=== PATIENT | male | born 1935 | race Caucasian/White ===

== ENCOUNTER 2020-10-25 10:50 | Inpatient (IN) | payer MEDICARE, BC ==
[~2020-10-25] VITALS: Ht 182.9 cm; Wt 90.7 kg
[~2020-10-25 10:50] MED LIST: CARBIDOPA-LEVO1 EAC6 PO; CRESTOR 10 MG T10 MG PO; CYMBALTA60 MG PO; FERATE240 MG PO; FLEET OIL ENEM133 ML PR; FLOMAX 0.4 MG0.4 MG PO; LACTULOSE20 GM/30 M PO; LANTUS SOL100 UNIT/1 SQ; LEVAQUIN500 MG PO; LOPRESSOR 25 MG25 MG PO; LYRICA150 MG PO; MIRALAX 119 GR119 GM PO; NAMENDA10 MG PO; NORVASC 5 MG TAB5 MG PO; NOVOLOG FL100 UNIT/1 INJ; VALIUM 2 MG TAB2 MG PO; ZESTRIL10 MG PO
[2020-10-25 11:29] LABS: HEMOGLOBIN 12.5 gm/dl (14.0-17.5); RED BLOOD COUNT 4.13 M/UL (4.20-5.50); WHITE BLOOD COUNT 17.3 K/UL (4.5-11.0)
[2020-10-25 12:13] LABS: BUN/CREATININE RATIO 22 (0-10)
[2020-10-25] MEDS ORDERED: LANTUS100 UNIT/1 SQ (16:03)
--- NOTE | 2020-10-25 16:32 | NUR ---
DR DIAZ CALLED TO COME SEE PATIENT AT 1256 FOR CONCERNS FOR SEIZURES. HE SENT JUAN LUIS NAM. HE SUGGESTED A NEURO CONSULT. DR ALMARAZ NOTIFIED OF CONSULT AT 1258. HE ORDERED KEPPRA 1.5 G IV X1 THEN KEPPRA 750MG IV BID. ART LINE PLACED BY DR FAN IN LEFT RADIAL AT 1330. DR FAN ALSO PLACED TRIPLE LUMEN CENTRAL LINE AT BEDSIDE AT 1351. PT GIVEN ATIVAN 4MG IV X1 PER DR COLEMAN. LEVOPHED DECREASED FROM 15MCG TO 1OMCG AT 1358 VERSAD IV STARTED AT 1440 AT 2MG/HR DR DAWSON NOTIFED OF CONSULT FOR POST CARIDAC ARREST AT 1443 VERSAD INCREASED TO 10MG/HR PER DR DIAZ ORDERS TO TRY AND CONTROL CONTRACTURES. REWARMING BEGAN AT 1627 AFTER FAMLIY DECISION TO MAKE PT DNR. PLAN IS TO WITHDRAW CARE IN THE AM
[2020-10-25 16:45] LABS: BUN/CREATININE RATIO 28 (0-10)
[2020-10-25] MEDS ORDERED: NORCO 5-325 TA1 EACH PO (18:46)
[2020-10-25] MEDS ORDERED: SYNTHROID25 MCG PO (18:48)
[2020-10-25] MEDS ORDERED: LATANOPROST 0.7.5 ML EYEBOTH (18:51)
--- NOTE | 2020-10-26 13:19 | NUR ---
DR BEAVER CAME BACK TO SPEAK WITH FAMILY PER THERE REQUEST. DR BEAVER SPOKE WITH AND DAUGHTER AND SON. QUESTIONS ASKED AND ANSWERED
== END 2020-10-28 09:20 | disposition expired | DRG 208 ==
LOC: ER1 10:50 → CCU 13:21 → CDU 13:21 → CCU 15:16
PROVIDERS: Emergency Medicine; Physician Assistant; ADMIT Internal Medicine
PROC: 3E033XZ Introduction of Vasopressor into Peripheral Vein, Percutaneous Approach (ICD-10-PCS; principal; 2020-10-25)
PROC: 0BH17EZ Insertion of Endotracheal Airway into Trachea, Via Natural or Artificial Opening (ICD-10-PCS; principal; 2020-10-25)
PROC: 6A4Z0ZZ Hypothermia, Single (ICD-10-PCS; principal; 2020-10-25)
PROC: 5A1945Z Respiratory Ventilation, 24-96 Consecutive Hours (ICD-10-PCS; principal; 2020-10-25)
PROC: 02HV33Z Insertion of Infusion Device into Superior Vena Cava, Percutaneous Approach (ICD-10-PCS; 2020-10-25)
PROC: B548ZZA Ultrasonography of Superior Vena Cava, Guidance (ICD-10-PCS; 2020-10-25)
PROC: 03HY32Z Insertion of Monitoring Device into Upper Artery, Percutaneous Approach (ICD-10-PCS; 2020-10-25)
DX: J96.00 Acute respiratory failure, unspecified whether with hypoxia or hypercapnia (principal); J69.0 Pneumonitis due to inhalation of food and vomit; G93.1 Anoxic brain damage, not elsewhere classified; E87.4 Mixed disorder of acid-base balance; R57.0 Cardiogenic shock; G20 Parkinson's disease; F02.80 Dementia in other diseases classified elsewhere, unspecified severity, without behavioral disturbance, psychotic disturbance, mood disturbance, and anxiety; I95.9 Hypotension, unspecified; E11.9 Type 2 diabetes mellitus without complications; Z79.4 Long term (current) use of insulin; Z66 Do not resuscitate; I10 Essential (primary) hypertension; E78.5 Hyperlipidemia, unspecified; Z51.5 Encounter for palliative care; N40.0 Benign prostatic hyperplasia without lower urinary tract symptoms; E03.9 Hypothyroidism, unspecified; Z88.1 Allergy status to other antibiotic agents; Z88.0 Allergy status to penicillin; Z88.2 Allergy status to sulfonamides; Z88.8 Allergy status to other drugs, medicaments and biological substances; Z20.822 Contact with and (suspected) exposure to COVID-19; R40.2432 Glasgow coma scale score 3-8, at arrival to emergency department; I46.8 Cardiac arrest due to other underlying condition
CPT/HCPCS: 36415; 36600; 70450; 71045; 80048; 80053; 82040; 82550; 82553; 82803; 82962; 83735; 83874; 83880; 84100; 84484; 85025; 85610; 93005; 94002; 94760; 96365; 96366; 96368; 96372; 96375; 99285; J1953; J1956; J2060; J2250; J2270; J3370; J7040; J7070; U0002